=== PATIENT | male | born 1955 | race Caucasian/White ===

== ENCOUNTER 2024-08-19 12:26 | Inpatient (IN) | payer MEDICARE ==
[2024-08-16 13:33] LABS: BASOPHILS % 0.7 % (0.0-1.0); EOSINOPHILS # (AUTO) 0.1 (0.0-0.4); EOSINOPHILS % 2.7 % (0.0-6.0); HEMATOCRIT 45.7 % (38.2-49.6); LYMPHOCYTES # (AUTO) 1.3 (1.0-3.2); LYMPHOCYTES % 29.8 % (18.0-39.1); MEAN CORPUSCULAR HEMOGLOBIN 33.2 pg (28-32); MEAN CORPUSCULAR HGB CONC 32.8 g/dL (31-35); MEAN CORPUSCULAR VOLUME 101.1 fL (81-99); MONOCYTES # (AUTO) 0.5 (0.2-0.8); MONOCYTES % 11.2 % (4.4-11.3); NEUTROPHILS # (AUTO) 2.5 (2.1-6.9); NEUTROPHILS % 55.4 % (38.7-80.0); PLATELET COUNT 229 x10e3/uL (140-360); RED BLOOD COUNT 4.52 x10e6/uL (4.3-5.7); RED CELL DISTRIBUTION WIDTH 13.4 % (11.7-14.4); WHITE BLOOD COUNT 4.46 x10e3/uL (4.8-10.8)
[2024-08-16 14:00] LABS: ANION GAP 14.6 mmol/L (8-16); CALCIUM 9.7 mg/dL (8.4-10.2); CREATININE, SERUM 0.76 mg/dL (0.72-1.25); POTASSIUM 4.6 mmol/L (3.5-5.1)
[~2024-08-19] VITALS: Ht 185.4 cm; Wt 91.2 kg
[~2024-08-19 12:26] MED LIST: CYCLOBENZAPRINE10 MG PO; LAMOTRIGINE100 MG PO; LATUDA40 MG PO; MELOXICAM15 MG PO; PHENYLEPHRINE HCL 1% 10 MG/ML VIAL ONE
[2024-08-19] MEDS: GENTAMICIN 80MG/NS 100 ML 200 ML IV ONE (12:55)
[2024-08-19] MEDS: PIPERACILLIN/TAZOBACTAM 3.375 GM VIAL ONE (12:55)
[2024-08-19] MEDS: CLINDAMYCIN 600MG / 50ML 50 ML IV ONE (12:56)
[2024-08-19] MEDS: SODIUM CHLORIDE 0.9% 1000ML 1,000 ML ONE (12:56)
[2024-08-19] MEDS ORDERED: ACETAMINOPHEN 1000 MG/100 ML 100 ML IV ONE (13:14)
[2024-08-19] MEDS ORDERED: PROPOFOL IV EMULSION 10 MG/ML 20 ML VIAL ONE ×2 (13:14→15:56)
[2024-08-19] MEDS ORDERED: LIDOCAINE HCL 2% LOCAL INJ 5 ML SDV VIAL INJ ONE ×2 (13:14)
[2024-08-19] MEDS ORDERED: SEVOFLURANE INHAL SOLN 250 ML PEN BTL ONE (13:14)
[2024-08-19] MEDS ORDERED: FENTANYL CITRATE/PF 100MCG/2 ML INJ ONE (13:14)
[2024-08-19] MEDS ORDERED: MIDAZOLAM HCL 2 MG/2 ML VIAL ONE (13:15)
[2024-08-19] MEDS ORDERED: DEXAMETHASONE SOD PHOS INJ 4 MG/ML SDV ONE (14:24)
[2024-08-19] MEDS ORDERED: ONDANSETRON HCL INJ 2MG/ML 2ML 2 MG/ML VIAL ONE (14:24)
[2024-08-19] MEDS ORDERED: SUGAMMADEX SODIUM 200 MG/2 ML VIAL IV ONE (14:25)
[2024-08-19] MEDS ORDERED: EPHEDRINE SULFATE INJ 50 MG/ML VIAL ONE (15:41)
[2024-08-19] MEDS ORDERED: ESMOLOL HCL 100MG/10ML 10 MG/ML VIAL ONE (15:57)
[2024-08-19] MEDS ORDERED: ACETAMINOPHEN 1000 MG/100 ML IV PRN (17:30)
[2024-08-19 18:00] VITALS: BP 131/85; PULSE 81; RESP 17; TEMP 98.2; O2SAT 99
[2024-08-19] MEDS: SENNA-S TABLET PO SCH (18:00)
[2024-08-19] MEDS: Clindamycin INJ 300 MG/50 ML 50 ML IV SCH (20:34)
[2024-08-19] MEDS: SODIUM CHLORIDE 0.9% 1000ML 1,000 ML IV SCH (20:34)
[2024-08-19] MEDS: TRAMADOL HCL 50 MG TAB PO PRN (20:50)
[2024-08-20] VITALS (9 sets, daily range): BP systolic 116–133; BP diastolic 69–89; PULSE 78–103; RESP 17–18; TEMP 97.8–98.5; O2SAT 97–100
[2024-08-20] MEDS: SODIUM CHLORIDE 0.9% 1000ML 1,000 ML IV SCH (10:15)
[2024-08-20] MEDS ORDERED: ACETAMINOPHEN 1000 MG/100 ML IV PRN (10:15)
[2024-08-21] VITALS (7 sets, daily range): BP systolic 113–132; BP diastolic 71–99; PULSE 80–98; RESP 18–20; TEMP 98.2–98.9; O2SAT 98–100
[2024-08-21 06:00] LABS: BASOPHILS % 0.3 % (0.0-1.0); EOSINOPHILS # (AUTO) 0.1 (0.0-0.4); HEMATOCRIT 36.8 % (38.2-49.6); HEMOGLOBIN 12.3 g/dL (14.0-18.0); LYMPHOCYTES # (AUTO) 1.8 (1.0-3.2); LYMPHOCYTES % 25.5 % (18.0-39.1); MEAN CORPUSCULAR HEMOGLOBIN 33.4 pg (28-32); MEAN CORPUSCULAR HGB CONC 33.4 g/dL (31-35); MONOCYTES # (AUTO) 0.8 (0.2-0.8); MONOCYTES % 11.4 % (4.4-11.3); NEUTROPHILS # (AUTO) 4.2 (2.1-6.9); NEUTROPHILS % 61.5 % (38.7-80.0); PLATELET COUNT 192 x10e3/uL (140-360); RED BLOOD COUNT 3.68 x10e6/uL (4.3-5.7); RED CELL DISTRIBUTION WIDTH 13.6 % (11.7-14.4); WHITE BLOOD COUNT 6.87 x10e3/uL (4.8-10.8)
[2024-08-21 06:20] LABS: ANION GAP 12.7 mmol/L (8-16); CALCIUM 8.5 mg/dL (8.4-10.2); CREATININE, SERUM 0.68 mg/dL (0.72-1.25); POTASSIUM 3.7 mmol/L (3.5-5.1)
[2024-08-21] MEDS: LAMOTRIGINE 100 MG TAB PO SCH (08:59)
[2024-08-21] MEDS: NON-FORMULARY MEDICATION (Lurasidone Hcl (Latuda) 1 TAB) PO SCH (09:00)
[2024-08-21] MEDS: POLYETHYLENE GLYCOL 3350 17 GM PACK PO SCH (10:21)
[2024-08-21] MEDS: MELOXICAM 7.5 MG TAB PO SCH (10:21)
[2024-08-21] MEDS: MAGNESIUM HYDROXIDE 30 ML UDC PO PRN (10:21)
[2024-08-21] MEDS ORDERED: FENTANYL CITRATE/PF 100MCG/2 ML INJ ONE ×2 (14:44→15:12)
[2024-08-21] MEDS ORDERED: PROPOFOL IV EMULSION 10 MG/ML 20 ML VIAL ONE ×2 (14:44→15:16)
[2024-08-21] MEDS ORDERED: LIDOCAINE HCL 2% LOCAL INJ 5 ML SDV VIAL INJ ONE ×2 (14:44→15:12)
[2024-08-21] MEDS ORDERED: ACETAMINOPHEN 1000 MG/100 ML 0 ML IV ONE (14:44)
[2024-08-21] MEDS ORDERED: SEVOFLURANE INHAL SOLN 250 ML PEN BTL ONE (14:44)
[2024-08-21] MEDS ORDERED: MIDAZOLAM HCL 2 MG/2 ML VIAL ONE (15:12)
[2024-08-21] MEDS ORDERED: DEXAMETHASONE SOD PHOS INJ 4 MG/ML SDV ONE (15:29)
[2024-08-21] MEDS ORDERED: ONDANSETRON HCL INJ 2MG/ML 2ML 2 MG/ML VIAL ONE (15:51)
[2024-08-21] MEDS: CYCLOBENZAPRINE HCL 10 MG TAB PO PRN (21:05)
[2024-08-22] VITALS (10 sets, daily range): BP systolic 109–135; BP diastolic 65–90; PULSE 80–90; RESP 17–20; TEMP 98.1–98.4; O2SAT 96–100
[2024-08-22 06:30] LABS: BASOPHILS % 0.2 % (0.0-1.0); HEMOGLOBIN 12.3 g/dL (14.0-18.0); LYMPHOCYTES # (AUTO) 0.5 (1.0-3.2); LYMPHOCYTES % 9.5 % (18.0-39.1); MEAN CORPUSCULAR HEMOGLOBIN 33.4 pg (28-32); MEAN CORPUSCULAR HGB CONC 34.2 g/dL (31-35); MEAN CORPUSCULAR VOLUME 97.8 fL (81-99); MONOCYTES # (AUTO) 0.4 (0.2-0.8); MONOCYTES % 7.2 % (4.4-11.3); NEUTROPHILS # (AUTO) 4.7 (2.1-6.9); NEUTROPHILS % 82.7 % (38.7-80.0); PLATELET COUNT 229 x10e3/uL (140-360); RED BLOOD COUNT 3.68 x10e6/uL (4.3-5.7); RED CELL DISTRIBUTION WIDTH 13.2 % (11.7-14.4); WHITE BLOOD COUNT 5.67 x10e3/uL (4.8-10.8)
[2024-08-22 06:45] LABS: ANION GAP 14.1 mmol/L (8-16); CALCIUM 8.7 mg/dL (8.4-10.2); CREATININE, SERUM 0.69 mg/dL (0.72-1.25); POTASSIUM 4.1 mmol/L (3.5-5.1)
[2024-08-22] MEDS: BISACODYL 10 MG SUPP PR ONE (08:52)
[2024-08-22] MEDS ORDERED: BISACODYL 10 MG SUPP PR PRN (09:45)
[2024-08-22] MEDS: BISACODYL 10 MG SUPP PR STA (10:30)
[2024-08-23] VITALS (9 sets, daily range): BP systolic 106–149; BP diastolic 68–99; PULSE 73–88; RESP 17–20; TEMP 97.6–98.3; O2SAT 97–100
[2024-08-23 05:33] LABS: BASOPHILS % 0.5 % (0.0-1.0); EOSINOPHILS # (AUTO) 0.1 (0.0-0.4); EOSINOPHILS % 1.7 % (0.0-6.0); HEMATOCRIT 38.3 % (38.2-49.6); HEMOGLOBIN 12.5 g/dL (14.0-18.0); LYMPHOCYTES # (AUTO) 2.2 (1.0-3.2); LYMPHOCYTES % 35.1 % (18.0-39.1); MEAN CORPUSCULAR HEMOGLOBIN 32.7 pg (28-32); MEAN CORPUSCULAR HGB CONC 32.6 g/dL (31-35); MEAN CORPUSCULAR VOLUME 100.3 fL (81-99); MONOCYTES # (AUTO) 0.6 (0.2-0.8); MONOCYTES % 9.8 % (4.4-11.3); NEUTROPHILS # (AUTO) 3.3 (2.1-6.9); NEUTROPHILS % 52.6 % (38.7-80.0); PLATELET COUNT 242 x10e3/uL (140-360); RED BLOOD COUNT 3.82 x10e6/uL (4.3-5.7); RED CELL DISTRIBUTION WIDTH 13.3 % (11.7-14.4); WHITE BLOOD COUNT 6.35 x10e3/uL (4.8-10.8)
[2024-08-23 05:49] LABS: ANION GAP 14.3 mmol/L (8-16); CALCIUM 9.3 mg/dL (8.4-10.2); CREATININE, SERUM 0.77 mg/dL (0.72-1.25); POTASSIUM 4.3 mmol/L (3.5-5.1)
[2024-08-24 04:00] VITALS: BP 109/66; PULSE 85; RESP 18; TEMP 98.2; O2SAT 100
[2024-08-24 06:28] LABS: BASOPHILS % 0.7 % (0.0-1.0); EOSINOPHILS # (AUTO) 0.3 (0.0-0.4); EOSINOPHILS % 4.6 % (0.0-6.0); HEMATOCRIT 35.5 % (38.2-49.6); HEMOGLOBIN 11.8 g/dL (14.0-18.0); LYMPHOCYTES # (AUTO) 1.6 (1.0-3.2); LYMPHOCYTES % 28.5 % (18.0-39.1); MEAN CORPUSCULAR HEMOGLOBIN 32.6 pg (28-32); MEAN CORPUSCULAR HGB CONC 33.2 g/dL (31-35); MEAN CORPUSCULAR VOLUME 98.1 fL (81-99); MONOCYTES # (AUTO) 0.7 (0.2-0.8); MONOCYTES % 11.6 % (4.4-11.3); NEUTROPHILS # (AUTO) 3.1 (2.1-6.9); NEUTROPHILS % 54.4 % (38.7-80.0); PLATELET COUNT 242 x10e3/uL (140-360); RED BLOOD COUNT 3.62 x10e6/uL (4.3-5.7); RED CELL DISTRIBUTION WIDTH 13.3 % (11.7-14.4); WHITE BLOOD COUNT 5.68 x10e3/uL (4.8-10.8)
[2024-08-24 06:42] VITALS: PULSE 98; RESP 20; O2SAT 95
[2024-08-24 06:49] LABS: CALCIUM 8.7 mg/dL (8.4-10.2); CREATININE, SERUM 0.69 mg/dL (0.72-1.25)
[2024-08-24 09:26] VITALS: BP 144/88; PULSE 91; RESP 18; TEMP 98.8; O2SAT 98
== END 2024-08-24 12:12 | disposition home or self-care (01) | DRG 709 ==
LOC: OR 12:26 → PACU V 14:23 → MED/SURG2 18:20
PROVIDERS: ADMIT Internal Medicine; ATTEND Internal Medicine
PROC: 0TJB8ZZ Inspection of Bladder, Via Natural or Artificial Opening Endoscopic (ICD-10-PCS; 2024-08-19)
PROC: 0VUS0JZ Supplement Penis with Synthetic Substitute, Open Approach (ICD-10-PCS; principal; 2024-08-19 14:11)
PROC: 0V9500Z Drainage of Scrotum with Drainage Device, Open Approach (ICD-10-PCS; 2024-08-21)
DX: N52.9 Male erectile dysfunction, unspecified (principal); D62 Acute posthemorrhagic anemia; N99.840 Postprocedural hematoma of a genitourinary system organ or structure following a genitourinary system procedure; D68.9 Coagulation defect, unspecified; Y92.230 Patient room in hospital as the place of occurrence of the external cause; N35.919 Unspecified urethral stricture, male, unspecified site; N32.89 Other specified disorders of bladder; Z79.899 Other long term (current) drug therapy
CPT/HCPCS: 36415; 71046; 80048; 85025; 93005; 94799; C1813; J1100; J1580; J2003; J2250; J2371; J2405; J2543; J7030

== ENCOUNTER 2024-08-31 12:03 | Inpatient (IN) | payer MEDICARE ==
[~2024-08-31] VITALS: Ht 188 cm; Wt 92.6 kg
[2024-08-31] VITALS (8 sets, daily range): BP systolic 131–151; BP diastolic 80–91; PULSE 75–80; RESP 18; TEMP 98.1–98.8; O2SAT 99–100
[~2024-08-31 12:03] MED LIST changes: -PHENYLEPHRINE HCL 1% 10 MG/ML VIAL ONE
[2024-08-31] MEDS ORDERED: ONDANSETRON HCL INJ 2MG/ML 2ML 2 MG/ML VIAL IV PRN ×2 (12:15→15:15)
[2024-08-31 12:25] LABS: BASOPHILS % 0.7 % (0.0-1.0); EOSINOPHILS # (AUTO) 0.2 (0.0-0.4); EOSINOPHILS % 3.4 % (0.0-6.0); HEMATOCRIT 37.8 % (38.2-49.6); HEMOGLOBIN 12.6 g/dL (14.0-18.0); LYMPHOCYTES # (AUTO) 1.4 (1.0-3.2); LYMPHOCYTES % 22.8 % (18.0-39.1); MEAN CORPUSCULAR HEMOGLOBIN 32.8 pg (28-32); MEAN CORPUSCULAR HGB CONC 33.3 g/dL (31-35); MEAN CORPUSCULAR VOLUME 98.4 fL (81-99); MONOCYTES # (AUTO) 0.5 (0.2-0.8); MONOCYTES % 8.7 % (4.4-11.3); NEUTROPHILS # (AUTO) 3.9 (2.1-6.9); NEUTROPHILS % 63.9 % (38.7-80.0); PLATELET COUNT 326 x10e3/uL (140-360); RED BLOOD COUNT 3.84 x10e6/uL (4.3-5.7); RED CELL DISTRIBUTION WIDTH 13.3 % (11.7-14.4); WHITE BLOOD COUNT 6.09 x10e3/uL (4.8-10.8)
[2024-08-31 12:44] LABS: ALBUMIN/GLOBULIN RATIO 1.5 (0.8-2.0); ANION GAP 15.2 mmol/L (8-16); BILIRUBIN,TOTAL 0.3 mg/dL (0.2-1.2); CREATININE, SERUM 0.71 mg/dL (0.72-1.25); POTASSIUM 4.2 mmol/L (3.5-5.1); TOTAL PROTEIN 6.7 g/dL (6.5-8.1)
[2024-08-31] MEDS: SODIUM CHLORIDE 0.9% 1000ML 1,000 ML IV SCH (13:06)
[2024-08-31] MEDS ORDERED: HYDROMORPHONE 1MG/1ML INJ IV PRN (15:15)
[2024-08-31] MEDS ORDERED: ACETAMINOPHEN 325 MG TAB PO PRN (15:15)
[2024-08-31] MEDS ORDERED: MAGNESIUM HYDROXIDE 30 ML UDC PO PRN (15:15)
[2024-08-31] MEDS: SENNA-S TABLET PO SCH (17:00)
[2024-08-31] MEDS: CELECOXIB 100 MG CAP PO SCH (17:13)
[2024-08-31] MEDS: LACTOBACILLUS ACIDOPHILUS CAPSULE PO SCH (17:14)
[2024-08-31] MEDS: Vancomycin IV 1 GM in SODIUM CHLORIDE 0.9% 250ML 250 ML IV SCH (17:14)
[2024-08-31 20:06] LABS: BACTERIA,URINE FEW /HPF; BILIRUBIN,URINE NEGATIVE (NEGATIVE); CLARITY,URINE CLEAR (CLEAR); COLOR,URINE YELLOW (YELLOW); EPITHELIAL CELLS,URINE FEW /LPF; GLUCOSE, URINE NEGATIVE (NEGATIVE); KETONES,URINE NEGATIVE (NEGATIVE); LEUKOCYTE ESTERASE ,URINE NEGATIVE (NEGATIVE); NITRITE,URINE NEGATIVE (NEGATIVE); PH,URINE 7 (5 - 7); PROTEIN,URINE DIPSTICK NEGATIVE (NEGATIVE); RBC,URINE 0-5 /HPF (0-5); URINE UROBILINOGEN 0.2 mg/dL (0.2 - 1)
[2024-08-31 20:19] LABS: MUCUS,URINE FEW
[2024-09-01] VITALS (8 sets, daily range): BP systolic 113–143; BP diastolic 78–90; PULSE 75–89; RESP 18; TEMP 97.9–98.5; O2SAT 96–100
[2024-09-01 05:52] LABS: BASOPHILS % 0.5 % (0.0-1.0); EOSINOPHILS # (AUTO) 0.3 (0.0-0.4); EOSINOPHILS % 3.9 % (0.0-6.0); HEMATOCRIT 36.9 % (38.2-49.6); LYMPHOCYTES # (AUTO) 1.8 (1.0-3.2); LYMPHOCYTES % 26.7 % (18.0-39.1); MEAN CORPUSCULAR HEMOGLOBIN 32.6 pg (28-32); MEAN CORPUSCULAR HGB CONC 32.5 g/dL (31-35); MEAN CORPUSCULAR VOLUME 100.3 fL (81-99); MONOCYTES # (AUTO) 0.7 (0.2-0.8); MONOCYTES % 10.1 % (4.4-11.3); NEUTROPHILS # (AUTO) 3.9 (2.1-6.9); NEUTROPHILS % 58.5 % (38.7-80.0); PLATELET COUNT 272 x10e3/uL (140-360); RED BLOOD COUNT 3.68 x10e6/uL (4.3-5.7); RED CELL DISTRIBUTION WIDTH 13.3 % (11.7-14.4); WHITE BLOOD COUNT 6.63 x10e3/uL (4.8-10.8)
[2024-09-01 06:08] LABS: CALCIUM 8.6 mg/dL (8.4-10.2); CREATININE, SERUM 0.76 mg/dL (0.72-1.25)
[2024-09-01] MEDS: CYCLOBENZAPRINE HCL 10 MG TAB PO SCH (08:52)
[2024-09-01] MEDS: LAMOTRIGINE 100 MG TAB PO SCH (08:52)
[2024-09-01] MEDS: TEMAZEPAM 15 MG CAP PO SCH (21:30)
[2024-09-02] VITALS (7 sets, daily range): BP systolic 80–128; BP diastolic 74–90; PULSE 83–99; RESP 13–20; TEMP 97.5–98.3; O2SAT 95–100
[2024-09-02] MEDS: NON-FORMULARY MEDICATION (Lurasidone Hcl (Latuda) 40 MG) PO SCH (09:35)
[2024-09-02] MEDS ORDERED: PROPOFOL IV EMULSION 10 MG/ML 20 ML VIAL ONE ×2 (15:29→17:02)
[2024-09-02] MEDS ORDERED: LIDOCAINE HCL 2% LOCAL INJ 5 ML SDV VIAL INJ ONE (15:29)
[2024-09-02] MEDS ORDERED: FENTANYL CITRATE/PF 100MCG/2 ML INJ ONE ×2 (15:29→16:57)
[2024-09-02] MEDS ORDERED: MIDAZOLAM HCL 2 MG/2 ML VIAL ONE (16:13)
[2024-09-02] MEDS ORDERED: ACETAMINOPHEN 1000 MG/100 ML 100 ML IV ONE (16:37)
[2024-09-02] MEDS ORDERED: SEVOFLURANE INHAL SOLN 250 ML PEN BTL ONE (16:37)
[2024-09-02] MEDS ORDERED: EPHEDRINE SULFATE INJ 50 MG/ML VIAL ONE ×2 (17:07)
[2024-09-02] MEDS ORDERED: HYDROMORPHONE 2MG/ML ONE (17:34)
[2024-09-03] VITALS (8 sets, daily range): BP systolic 109–136; BP diastolic 65–87; PULSE 84–108; RESP 16–20; TEMP 97.6–98.4; O2SAT 97–100
[2024-09-03 05:24] LABS: BASOPHILS % 0.1 % (0.0-1.0); HEMATOCRIT 34.8 % (38.2-49.6); HEMOGLOBIN 11.7 g/dL (14.0-18.0); LYMPHOCYTES # (AUTO) 0.7 (1.0-3.2); LYMPHOCYTES % 9.5 % (18.0-39.1); MEAN CORPUSCULAR HEMOGLOBIN 32.8 pg (28-32); MEAN CORPUSCULAR HGB CONC 33.6 g/dL (31-35); MEAN CORPUSCULAR VOLUME 97.5 fL (81-99); MONOCYTES # (AUTO) 0.4 (0.2-0.8); MONOCYTES % 5.2 % (4.4-11.3); NEUTROPHILS % 84.8 % (38.7-80.0); PLATELET COUNT 298 x10e3/uL (140-360); RED BLOOD COUNT 3.57 x10e6/uL (4.3-5.7); RED CELL DISTRIBUTION WIDTH 13.1 % (11.7-14.4); WHITE BLOOD COUNT 7.05 x10e3/uL (4.8-10.8)
[2024-09-03 05:59] LABS: ANION GAP 13.9 mmol/L (8-16); CALCIUM 8.7 mg/dL (8.4-10.2); CREATININE, SERUM 0.71 mg/dL (0.72-1.25); POTASSIUM 3.9 mmol/L (3.5-5.1)
[2024-09-03] MEDS: HYDROCODONE/APAP 7.5MG-325MG 1 EA TAB PO PRN (23:11)
[2024-09-04] VITALS (7 sets, daily range): BP systolic 109–147; BP diastolic 65–92; PULSE 85–114; RESP 18–21; TEMP 97.8–98.8; O2SAT 95–100
[2024-09-04] MEDS: TEMAZEPAM 15 MG CAP PO SCH (21:08)
[2024-09-05 07:26] VITALS: BP 138/81; PULSE 77; RESP 18; TEMP 98.1; O2SAT 97
[2024-09-05 07:49] VITALS: PULSE 92; RESP 18; O2SAT 96
[2024-09-05 09:00] VITALS: BP 138/81; PULSE 92; RESP 18; TEMP 98.1; O2SAT 96
[2024-09-05 11:10] VITALS: BP 130/95; PULSE 93; RESP 18; TEMP 98.2; O2SAT 98
[2024-09-05] MEDS ORDERED: ONDANSETRON HCL 4 MG ORAL DISINTEGRATING TAB PO PRN (13:00)
[2024-09-05 15:22] VITALS: PULSE 89; RESP 18; O2SAT 98
== END 2024-09-05 16:03 | disposition home or self-care (01) | DRG 988 ==
LOC: ER 12:11 → ERHOLD 12:15 → MED/SURG2 14:58
PROVIDERS: ADMIT Internal Medicine; ATTEND Internal Medicine
PROC: 0V9500Z Drainage of Scrotum with Drainage Device, Open Approach (ICD-10-PCS; 2024-09-02)
PROC: 0VWS0JZ Revision of Synthetic Substitute in Penis, Open Approach (ICD-10-PCS; principal; 2024-09-02 16:28)
DX: N99.820 Postprocedural hemorrhage of a genitourinary system organ or structure following a genitourinary system procedure (principal); T81.31XA Disruption of external operation (surgical) wound, not elsewhere classified, initial encounter; R31.0 Gross hematuria; N49.2 Inflammatory disorders of scrotum; N52.9 Male erectile dysfunction, unspecified; Z96.0 Presence of urogenital implants; Y83.1 Surgical operation with implant of artificial internal device as the cause of abnormal reaction of the patient, or of later complication, without mention of misadventure at the time of the procedure; Y92.009 Unspecified place in unspecified non-institutional (private) residence as the place of occurrence of the external cause; F31.9 Bipolar disorder, unspecified; M54.50 Low back pain, unspecified; G89.29 Other chronic pain; M19.91 Primary osteoarthritis, unspecified site; G47.00 Insomnia, unspecified; Z85.820 Personal history of malignant melanoma of skin; Z79.899 Other long term (current) drug therapy
CPT/HCPCS: 36415; 80048; 80053; 80202; 81001; 85025; 87071; 87075; 87086; 87205; 88304; 94799; 99252; 99284; J0692; J1171; J2003; J2250; J2543; J7030; J7050

== ENCOUNTER 2025-01-29 07:58 | Inpatient (IN) | payer MEDICARE ==
[2025-01-29] VITALS (7 sets, daily range): BP systolic 143; BP diastolic 85–92; PULSE 74–86; RESP 14–20; TEMP 98.1–98.2; O2SAT 97–100
[~2025-01-29] VITALS: Ht 188 cm; Wt 92.5 kg
[2025-01-29 09:05] LABS: BASOPHILS % 0.7 % (0.0-1.0); EOSINOPHILS % 4.8 % (0.0-6.0); LYMPHOCYTES % 21.3 % (18.0-39.1); MONOCYTES % 10.2 % (4.4-11.3); NEUTROPHILS % 62.5 % (38.7-80.0); RED CELL DISTRIBUTION WIDTH 14.3 % (11.7-14.4)
[2025-01-29] MEDS: SODIUM CHLORIDE 0.9% 1000ML 2,470 ML IV SCH (09:11)
[2025-01-29] MEDS: CLINDAMYCIN PHOS 900MG/ 50ML 50 ML IV ONE (09:12)
[2025-01-29 09:38] LABS: EST GLOMERULAR FILTRATION RATE 93.0 ML/MIN (>=60)
[2025-01-29 15:36] LABS: LEUKOCYTE ESTERASE ,URINE SMALL (NEGATIVE)
[2025-01-29 15:37] LABS: PROTEIN,URINE DIPSTICK NEGATIVE (NEGATIVE); URINE UROBILINOGEN 0.2 mg/dL (0.2 - 1)
[2025-01-29] MEDS: Vancomycin IV 1 GM in SODIUM CHLORIDE 0.9% 250ML 250 ML IV SCH (23:04)
[2025-01-30] VITALS: BP 0/0; RESP 19
[2025-01-30 05:17] VITALS: RESP 19
[2025-01-30 07:30] VITALS: BP 129/72; PULSE 76; RESP 18; TEMP 98.1; O2SAT 97
[2025-01-30 07:59] LABS: BASOPHILS % 0.7 % (0.0-1.0); EOSINOPHILS % 5.0 % (0.0-6.0); LYMPHOCYTES % 17.4 % (18.0-39.1); MONOCYTES % 10.8 % (4.4-11.3); NEUTROPHILS % 65.8 % (38.7-80.0); RED CELL DISTRIBUTION WIDTH 14.1 % (11.7-14.4)
[2025-01-30 08:25] LABS: EST GLOMERULAR FILTRATION RATE 99.0 ML/MIN (>=60)
[2025-01-30] MEDS: CYCLOBENZAPRINE HCL 10 MG TAB PO SCH (08:46)
[2025-01-30] MEDS: LAMOTRIGINE 100 MG TAB PO SCH (08:46)
[2025-01-30] MEDS: LURASIDONE 40 MG PO SCH (09:00)
[2025-01-30] MEDS ORDERED: HYDRALAZINE HCL 20 MG/ML VIAL IV PRN (10:45)
[2025-01-30] MEDS ORDERED: ACETAMINOPHEN 325 MG TAB PO PRN (10:45)
[2025-01-30 21:14] VITALS: BP 140/95; PULSE 91; RESP 18; TEMP 98.1; O2SAT 100
[2025-01-30 21:47] VITALS: BP 140/95; PULSE 91; RESP 18; TEMP 98.1; O2SAT 100
[2025-01-30] MEDS: TEMAZEPAM 15 MG CAP PO PRN (22:39)
[2025-01-31 00:49] VITALS: BP 0/0
[2025-01-31 08:09] VITALS: BP 136/79; PULSE 79; RESP 18; TEMP 98.6; O2SAT 97
[2025-01-31 09:57] VITALS: BP 136/79; PULSE 79; RESP 18; TEMP 98.6; O2SAT 97
[2025-01-31 12:27] VITALS: BP 128/94; PULSE 79; RESP 18; TEMP 98.7; O2SAT 100
[2025-01-31] MEDS ORDERED: PROPOFOL IV EMULSION 10 MG/ML 20 ML VIAL ONE (14:11)
[2025-01-31] MEDS ORDERED: LIDOCAINE HCL 2% LOCAL INJ 5 ML SDV VIAL INJ ONE (14:13)
[2025-01-31] MEDS ORDERED: FENTANYL CITRATE/PF 100MCG/2 ML INJ ONE ×2 (14:13→16:04)
[2025-01-31] MEDS ORDERED: SUCCINYLCHOLINE CHLORIDE 20 MG/ML 10ML VIAL ONE (14:14)
[2025-01-31] MEDS ORDERED: MIDAZOLAM HCL 2 MG/2 ML VIAL ONE (14:14)
[2025-01-31] MEDS ORDERED: ROCURONIUM BROMIDE 1 ML IV ONE (14:57)
[2025-01-31] MEDS ORDERED: PHENYLEPHRINE HCL 1% 10 MG/ML VIAL ONE (15:28)
[2025-01-31] MEDS ORDERED: ACETAMINOPHEN 1000 MG/100 ML 100 ML IV ONE (15:31)
[2025-01-31] MEDS ORDERED: ONDANSETRON HCL INJ 2MG/ML 2ML 2 MG/ML VIAL ONE (15:32)
[2025-01-31] MEDS ORDERED: DEXAMETHASONE SOD PHOS INJ 4 MG/ML SDV ONE (15:32)
[2025-01-31] MEDS ORDERED: NEOSTIGMINE 1 MG/ML 10ML VIAL ONE (16:52)
[2025-01-31] MEDS ORDERED: GLYCOPYRROLATE INJ 0.2 MG/ML VIAL ONE (16:52)
[2025-01-31] MEDS ORDERED: PHENAZOPYRIDINE HCL 100 MG TAB PO PRN (18:30)
[2025-01-31] MEDS ORDERED: ACETAMINOPHEN 1000 MG/100 ML IV PRN (18:30)
[2025-01-31] MEDS ORDERED: DIPHENHYDRAMINE HCL 25 MG CAP PO PRN (18:30)
[2025-01-31] MEDS ORDERED: ONDANSETRON HCL INJ 2MG/ML 2ML 2 MG/ML VIAL IV PRN (18:30)
[2025-01-31] MEDS: ACETAMINOPHEN/CODEINE 300MG - 30MG TAB ONE (18:35)
[2025-01-31 20:00] VITALS: BP 133/86; PULSE 74; RESP 17; TEMP 97.3; O2SAT 98
[2025-01-31] MEDS: HYDROMORPHONE 1MG/1ML INJ IV PRN (20:31)
[2025-01-31] MEDS: ONDANSETRON HCL INJ 2MG/ML 2ML 2 MG/ML VIAL IV PRN (20:31)
[2025-01-31] MEDS: SODIUM CHLORIDE 0.9% 1000ML 1,000 ML IV SCH (20:32)
[2025-01-31 21:00] VITALS: BP 133/86; PULSE 74; RESP 17; TEMP 97.3; O2SAT 98
[2025-01-31] MEDS: HYDROCODONE/APAP 10MG-325MG TAB PO PRN (23:09)
[2025-02-01] VITALS (10 sets, daily range): BP systolic 114–127; BP diastolic 68–95; PULSE 76–105; RESP 17–20; TEMP 97.6–98.9; O2SAT 96–100
[2025-02-01 06:37] LABS: BASOPHILS % 0.3 % (0.0-1.0); EOSINOPHILS % 0.0 % (0.0-6.0); LYMPHOCYTES % 11.2 % (18.0-39.1); MONOCYTES % 8.7 % (4.4-11.3); NEUTROPHILS % 79.4 % (38.7-80.0); RED CELL DISTRIBUTION WIDTH 14.0 % (11.7-14.4)
[2025-02-01 07:47] LABS: EST GLOMERULAR FILTRATION RATE 100.0 ML/MIN (>=60)
[2025-02-01] MEDS: Vancomycin IV 1 GM VIAL ONE (08:36)
[2025-02-01] MEDS: SODIUM CHLORIDE 0.9% 250ML 250 ML ONE (08:36)
[2025-02-01] MEDS: GENTAMICIN 80MG/NS 100 ML 100 ML IV ONE (08:37)
[2025-02-02] VITALS (8 sets, daily range): BP systolic 116–133; BP diastolic 83–92; PULSE 81–101; RESP 18; TEMP 97.8–98.6; O2SAT 97–100
[2025-02-02 08:16] LABS: BASOPHILS % 0.3 % (0.0-1.0); EOSINOPHILS % 1.8 % (0.0-6.0); LYMPHOCYTES % 20.8 % (18.0-39.1); MONOCYTES % 11.9 % (4.4-11.3); NEUTROPHILS % 64.8 % (38.7-80.0); RED CELL DISTRIBUTION WIDTH 13.8 % (11.7-14.4)
[2025-02-02 08:30] LABS: EST GLOMERULAR FILTRATION RATE 101.0 ML/MIN (>=60)
[2025-02-02] MEDS ORDERED: BISACODYL 10 MG SUPP PR PRN (10:00)
[2025-02-02] MEDS: POLYETHYLENE GLYCOL 3350 17 GM PACK PO SCH (11:27)
[2025-02-02] MEDS: SENNA-S TABLET PO SCH (11:27)
[2025-02-02] MEDS: MAGNESIUM HYDROXIDE 30 ML UDC PO ONE (11:27)
[2025-02-03] VITALS (9 sets, daily range): BP systolic 125–143; BP diastolic 83–98; PULSE 81–109; RESP 16–18; TEMP 97.8–98.7; O2SAT 96–100
[2025-02-03] MEDS ORDERED: Vancomycin IV 1 GM VIAL ONE (01:25)
[2025-02-03 07:16] LABS: BASOPHILS % 0.6 % (0.0-1.0); EOSINOPHILS % 5.3 % (0.0-6.0); LYMPHOCYTES % 26.3 % (18.0-39.1); MONOCYTES % 10.8 % (4.4-11.3); NEUTROPHILS % 56.7 % (38.7-80.0); RED CELL DISTRIBUTION WIDTH 13.8 % (11.7-14.4)
[2025-02-03 07:31] LABS: EST GLOMERULAR FILTRATION RATE 101.0 ML/MIN (>=60)
[2025-02-03] MEDS: MAGNESIUM HYDROXIDE 30 ML UDC PO PRN (13:52)
[2025-02-04 05:06] VITALS: BP 129/79; PULSE 79; RESP 20; TEMP 97.6; O2SAT 98
[2025-02-04 06:38] LABS: BASOPHILS % 0.4 % (0.0-1.0); EOSINOPHILS % 6.0 % (0.0-6.0); LYMPHOCYTES % 22.7 % (18.0-39.1); MONOCYTES % 9.5 % (4.4-11.3); NEUTROPHILS % 61.0 % (38.7-80.0); RED CELL DISTRIBUTION WIDTH 13.7 % (11.7-14.4)
[2025-02-04 07:08] LABS: EST GLOMERULAR FILTRATION RATE 100.0 ML/MIN (>=60)
[2025-02-04 07:20] VITALS: BP 132/92; PULSE 90; RESP 18; TEMP 97.5; O2SAT 99
[2025-02-04 08:38] VITALS: PULSE 91; RESP 16; O2SAT 97
[2025-02-04 18:52] VITALS: PULSE 96; RESP 14; O2SAT 99
[2025-02-04 20:00] VITALS: BP 124/93; PULSE 85; RESP 18; TEMP 98.8; O2SAT 100
[2025-02-05] VITALS (7 sets, daily range): BP systolic 123–145; BP diastolic 76–98; PULSE 80–98; RESP 16–20; TEMP 97.8–98.8; O2SAT 99–100
[2025-02-05] MEDS: FLUCONAZOLE 200 MG/100 ML 100 ML IV SCH (11:50)
[2025-02-05] MEDS: ACETAMINOPHEN/CODEINE 300MG - 30MG TAB PO PRN (17:47)
[2025-02-06 08:30] VITALS: BP 131/84; PULSE 82; RESP 20; TEMP 98.2; O2SAT 100
[2025-02-06 08:49] VITALS: BP 122/84; PULSE 76; RESP 19; TEMP 97.7; O2SAT 99
[2025-02-06] MEDS ORDERED: Vancomycin IV 500 MG in SODIUM CHLORIDE 0.9% 100 ML IV SCH (09:00)
[2025-02-06] MEDS: Vancomycin IV 1 GM in SODIUM CHLORIDE 0.9% 250ML 250 ML IV SCH (11:33)
[2025-02-06 12:00] VITALS: BP 133/89; PULSE 80; RESP 20; TEMP 98.2; O2SAT 100
[2025-02-06 16:00] VITALS: BP 137/92; PULSE 83; RESP 20; TEMP 98.1; O2SAT 100
[2025-02-06 20:00] VITALS: BP 118/90; PULSE 90; RESP 20; TEMP 98.3; O2SAT 100
[2025-02-07 08:00] VITALS: BP 109/67; PULSE 75; RESP 18; TEMP 98.6; O2SAT 100
[2025-02-07 08:55] VITALS: BP 109/67; PULSE 75; RESP 18; TEMP 98.6; O2SAT 100
== END 2025-02-07 13:30 | disposition home or self-care (01) | DRG 674 ==
LOC: ER 08:14 → ERHOLD 08:26 → IMCU 16:42 → MED/SURG3 01-30 19:52
PROVIDERS: ADMIT Internal Medicine; ATTEND Internal Medicine
PROC: 0VUS0JZ Supplement Penis with Synthetic Substitute, Open Approach (ICD-10-PCS; 2025-01-31)
PROC: 0T9B70Z Drainage of Bladder with Drainage Device, Via Natural or Artificial Opening (ICD-10-PCS; 2025-01-31)
PROC: 0VPS0JZ Removal of Synthetic Substitute from Penis, Open Approach (ICD-10-PCS; principal; 2025-01-31 14:58)
DX: T83.61XA Infection and inflammatory reaction due to implanted penile prosthesis, initial encounter (principal); B37.49 Other urogenital candidiasis; N35.919 Unspecified urethral stricture, male, unspecified site; N40.0 Benign prostatic hyperplasia without lower urinary tract symptoms; F31.9 Bipolar disorder, unspecified; G47.00 Insomnia, unspecified; F41.9 Anxiety disorder, unspecified; M54.9 Dorsalgia, unspecified; M54.2 Cervicalgia; D64.9 Anemia, unspecified; Y83.1 Surgical operation with implant of artificial internal device as the cause of abnormal reaction of the patient, or of later complication, without mention of misadventure at the time of the procedure; Z85.820 Personal history of malignant melanoma of skin; Z88.5 Allergy status to narcotic agent
CPT/HCPCS: 36415; 80048; 80053; 80202; 81001; 82948; 83605; 83735; 85025; 87040; 87071; 87075; 87086; 87205; 94799; 99283; C2622; J0330; J1100; J1171; J1450; J1580; J2003; J2250; J2371; J2405; J2543; J2710; J3373; J7030; J7050